=== PATIENT | male | born 1975 | race Two or more races ===

== ENCOUNTER 2017-02-24 05:49 | Inpatient (IN) | payer OTHER ==
[2017-02-24] VITALS (15 sets, daily range): BP systolic 11–122; BP diastolic 50–81
[~2017-02-24] VITALS: Ht 170.2 cm; Wt 85.3 kg
[~2017-02-24 05:49] MED LIST: GABAPENTIN100 MG ORAL; IBUPROFEN600 MG ORAL; TENORMIN25 MG ORAL
[2017-02-24] MEDS ORDERED: Bupivacaine w/Epi 0.5% 30ml Vial INJ ONE (06:18)
[2017-02-24] MEDS ORDERED: Gelfoam Absorbable 1gm powder pkt TOPIC ONE (06:18)
[2017-02-24] MEDS ORDERED: Thrombin 5000 units TOPIC ONE (06:18)
[2017-02-24] MEDS ORDERED: Vancomycin 1gm inj IVPB ONE (06:18)
[2017-02-24] MEDS ORDERED: Thrombin 5000 units spray kit TOPIC ONE (06:18)
[2017-02-24] MEDS ORDERED: Bacitracin 50000 Units Vial ONE (06:19)
--- NOTE | 2017-02-24 06:36 | Anethesia Preoperative Eval ---
Anesthesia Pre-op PMH/ROS General Date of Evaluation: Feb 24, 2017 Anesthesiologist: Pramod ASA Score: ASA 2 Mallampati Score Class I : Soft palate, uvula, fauces, pillars visible Class II: Soft palate, uvula, fauces visible Class III: Soft palate, base of uvula visible Class IV: Only hard plate visible Mallampati Classification: Class III Surgeon: Lenora Diagnosis: Lumbar radiculopathy Surgical Procedure: Transforaminal lumbar interbody fusion L5-S1 Anesthesia History: none Family History: no anesthesia problems Allergies: Coded Allergies: No Known Allergies (Unverified , 02/23/17) Medications: see eMAR Past Medical History Cardiovascular: Reports: HTN, Denies: CAD, LA, valve dz, arrhythmia, other Pulmonary: Denies: asthma, COPD, SON, other Gastrointestinal/Genitourinary: Denies: GERD, CRI, ESRD, other Neurologic/Psychiatric: Reports: depression/anxiety, Denies: dementia, CVA, TIA, other Endocrine: Denies: DM, hypothyroidism, steroids, other HEENT: Denies: cataract (L), cataract (R), glaucoma, [place] (L), [place] (R), other Hematology/Immune: Denies: anemia, DVT, bleeding disorder, other Musculoskeletal/Integumentary: Denies: OA, RA, DJD, DDD, edema, other PSxH Narrative: Denies Anesthesia Pre-op Phys. Exam Physician Exam Last Vital Signs Date Time Temp Pulse Resp B/P (MAP) Pulse Ox O2 Delivery O2 Flow Rate FiO2 02/24/17 06:27 97.3 65 17 122/77 97 Room Air Constitutional: NAD, other - right eye redness and with ?pterygium vs thick film over eye Cardiovascular: RRR Respiratory: CTA Airway Exam Mallampati Score: Class III MO: limited ROM: limited Teeth: intact Anesthesia Pre-op A/P Labs see chart Studies Pre-op Studies: EKG - sr Risk Assessment & Plan Assessment: ASA II, patient with right eye redness pre-op. States he is seeing and being treated by an opthalmologist for this condition as it is associated with some blurry/decreased vision. Plan: GA Status Change Before Surgery: No Pre-Antibiotics Drug: Ancef 2g Given Within 1 Hr of Incision: Yes Time Given: 07:20 CALLY LOZA M.D. Feb 24, 2017 06:35
[2017-02-24] MEDS ORDERED: Lidocaine 1% MPF 10mg/ml 5ml ONE (07:00)
[2017-02-24] MEDS ORDERED: NS Irrig 1000ml ONE (07:00)
[2017-02-24] MEDS ORDERED: Propofol 1,000mg/ 100ml btl IV ONE (07:00)
[2017-02-24] MEDS ORDERED: fentaNYL 100 mcg/2 mL IV ONE (07:00)
[2017-02-24] MEDS ORDERED: Metoclopramide 10mg/2ml Inj ONE (07:00)
[2017-02-24] MEDS ORDERED: Dexamethasone 4mg/ml vial ONE (07:00)
[2017-02-24] MEDS ORDERED: Propofol 200mg/20ml IV ONE ×2 (07:00→09:13)
[2017-02-24] MEDS ORDERED: Midazolam 2mg/2ml Inj ONE (07:00)
[2017-02-24] MEDS ORDERED: Sterile Water Irrig 1000ml IRRIG ONE (07:00)
[2017-02-24] MEDS ORDERED: Succinylcholine 20mg/ml 10ml vial ONE (07:00)
[2017-02-24] MEDS ORDERED: ceFAZolin 2gm/50ml Premix 50 ML IVPB ONE ×2 (07:00)
[2017-02-24] MEDS ORDERED: Zemuron 50mg/5ml Inj IV ONE (07:00)
[2017-02-24] MEDS ORDERED: LR 1000ml ONE (07:00)
[2017-02-24] MEDS ORDERED: ceFAZolin sod 2 GM in D5W 110 ML IVP ONE (07:00)
--- NOTE | 2017-02-24 07:08 | Pre-Procedure Note/Attestation ---
Pre-Procedure Note/Attestation Complete Prior to Procedure Procedure Narrative: l5 to s1 decompression and fusion and interbody fusion and instrumentation Indications for Procedure Pre-Operative Diagnosis: spondylolisthesis and radiculopathy L5 to S1 Attestation I attest that I discussed the nature of the procedure; its benefits; risks and complications; and alternatives (and the risks and benefits of such alternatives ), prior to the procedure, with the patient (or the patient's legal physician relations representative). I attest that, if there was a reasonable possibility of needing a blood transfusion, the patient (or the patient's legal physician relations representative) was given the [place] [facility] standardized written summary, pursuant to the Jean Claude Varun Blood Safety Act ([place] Health and Safety Code # 1645, as amended). I attest that I re-evaluated the patient just prior to the surgery and that there has been no change in the patient's H&P, except as documented below: RADHA RODGERS Feb 24, 2017 07:08
[2017-02-24] MEDS ORDERED: LR 1000ml 1,000 ML IVLG SCH (07:46)
--- NOTE | 2017-02-24 07:46 | Immediate Post-Op Evaluation ---
Immediate Post-Op Evalulation Immediate Post-Op Evalulation Procedure: Transforaminal lumbar interbody fusion L5-S1 Date of Evaluation: Feb 24, 2017 Time of Evaluation: 12:45 IV Fluids: 2L Blood Products: 0 Estimated Blood Loss: 500 Urinary Output: 170 Blood Pressure Systolic: 95 Blood Pressure Diastolic: 50 Pulse Rate: 87 Respiratory Rate: 17 O2 Sat by Pulse Oximetry: 98 Temperature (Fahrenheit): 98.5 Pain Score (1-10): 0 Nausea: No Vomiting: No Complications 0 Patient Status: awake, reacts, patent, none Hydration Status: adequate Drug: Ancef 2g Given Within 1 Hr of Incision: Yes Time Given: 07:20 CALLY LOZA M.D. Feb 24, 2017 07:46
[2017-02-24] MEDS ORDERED: fentaNYL 100 mcg/2 mL IV PRN (08:00)
[2017-02-24] MEDS ORDERED: Midazolam 2mg/2ml Inj IVP PRN (08:00)
[2017-02-24] MEDS ORDERED: Hydromorphone 0.5mg/0.5ml inj IVP PRN (08:00)
[2017-02-24] MEDS ORDERED: LORazepam Inj 2mg/ml 1ml IV PRN (08:00)
[2017-02-24] MEDS ORDERED: DiphenhydrAMINE 50mg/ml Inj IVP PRN (08:00)
[2017-02-24] MEDS ORDERED: Metoclopramide 10mg/2ml Inj IVP PRN (08:00)
[2017-02-24] MEDS ORDERED: Naloxone 0.4mg/ml Inj IVP PRN (12:15)
[2017-02-24] MEDS ORDERED: HYDROmorphone 1mg/ml Carpuject IVP PRN (12:15)
[2017-02-24] MEDS ORDERED: HYDROmorphone 1mg/ml Carpuject SUBQ PRN (12:15)
[2017-02-24] MEDS ORDERED: Norco 5mg/325mg tab ORAL PRN (12:15)
[2017-02-24] MEDS ORDERED: Norco 7.5mg/325mg tab ORAL PRN (12:15)
--- NOTE | 2017-02-24 12:18 | Brief Operative Note ---
Immediate Post Operative Note Operative Note Pre-op Diagnosis: spondylolisthesis and radiculopathy L5 to S1 Procedure: tlif l5s1 Post-op Diagnosis: same as pre-op Findings: consistent w/pre-op dx studies Surgeon: mike Analyst Market Intelligence: salas Anesthesiologist: trenton Specimen: none Complications: none Condition: stable Fluids: 1.6l Estimated Blood Loss: volume - 500cc Drains: hemovac Implant(s) used?: Yes RADHA RODGERS Feb 24, 2017 12:18
[2017-02-24] MEDS: D5 1/2NS 1,000 ML IV SCH ×2 (15:28→23:27)
--- NOTE | 2017-02-24 16:06 | Diagnostic Imaging Report ---
Indication: PAIN, intraoperative Technique: Intraoperative images Comparison: Med Findings: Intraoperative images document placement of posterior fusion hardware bridging L5 and S1, and placement of a disc spacer at the L5-S1 disc. Impression: Intraoperative imaging, as described
[2017-02-24] MEDS: ceFAZolin sod 1 GM in D5W 55 ML IV SCH ×2 (16:56→23:25)
[2017-02-24] MEDS: Docusate 100mg cap ORAL SCH (18:00)
[2017-02-25] VITALS: BP 115/70
[2017-02-25 04:00] VITALS: BP 105/75
[2017-02-25] MEDS: ceFAZolin sod 1 GM in D5W 55 ML IV SCH (06:02)
[2017-02-25 08:00] VITALS: BP 109/69
[2017-02-25] MEDS: Docusate 100mg cap ORAL SCH ×2 (09:33→18:05)
[2017-02-25] MEDS: D5 1/2NS 1,000 ML IV SCH ×3 (09:58→21:48)
[2017-02-25 11:51] LABS: BASOPHILS % (AUTO) 0.4 % (0.0-2.0); LYMPHOCYTES % (AUTO) 10.9 % (20.0-45.0); MEAN CORPUSCULAR HEMOGLOBIN 29.8 PG (27.0-31.0); MEAN CORPUSCULAR HGB CONC 33.8 G/DL (32.0-36.0); MEAN CORPUSCULAR VOLUME 88 FL (80-99); MEAN PLATELET VOLUME 8.5 FL (6.5-10.1); MONOCYTES % (AUTO) 6.4 % (1.0-10.0); NEUTROPHILS % (AUTO) 82.3 % (45.0-75.0); PLATELET COUNT 205 K/UL (150-450); RED CELL DISTRIBUTION WIDTH 11.9 % (11.6-14.8)
[2017-02-25 12:00] VITALS: BP 102/67
--- NOTE | 2017-02-25 13:36 | General Progress Note ---
Progress Note Progress Note no leg pain min lbp avss a and o times 3 inc cdi hv pulled calves soft and nt 5/5 motor le doing well brace pt arden mccollum dc home tomorrow with RADHA Anton Feb 25, 2017 13:36
[2017-02-25] MEDS: Norco 7.5mg/325mg tab ORAL PRN (15:09)
[2017-02-25] MEDS: Atenolol 25mg tab ORAL SCH (15:09)
[2017-02-25 16:00] VITALS: BP 121/79
--- NOTE | 2017-02-25 16:04 | 48 Hour Post Anesthesia Eval ---
Post Anesthesia Evaluation Procedure: Transforaminal lumbar interbody fusion L5-S1 Date of Evaluation: Feb 25, 2017 Time of Evaluation: 16:03 Blood Pressure Systolic: 128 0: 56 Pulse Rate: 72 Respiratory Rate: 20 Temperature (Fahrenheit): 97.5 O2 Sat by Pulse Oximetry: 98 Airway: patent Nausea: No Vomiting: No Pain Intensity: 3 Hydration Status: adequate Cardiopulmonary Status: stable Mental Status/LOC: patient returned to baseline Follow-up Care/Observations: n/a Post-Anesthesia Complications: none Follow-up care needed: N/A JACI DANIEL M.D. Feb 25, 2017 16:04
[2017-02-25 20:00] VITALS: BP 110/81
[2017-02-26] VITALS: BP 121/75
[2017-02-26 04:00] VITALS: BP 128/85
[2017-02-26] MEDS: D5 1/2NS 1,000 ML IV SCH (05:15)
[2017-02-26 08:38] VITALS: BP 133/86
[2017-02-26] MEDS: Atenolol 25mg tab ORAL SCH (08:40)
[2017-02-26] MEDS: Docusate 100mg cap ORAL SCH (08:40)
[2017-02-26 09:42] LABS: BASOPHILS % (AUTO) 0.5 % (0.0-2.0); LYMPHOCYTES % (AUTO) 11.7 % (20.0-45.0); MEAN CORPUSCULAR HEMOGLOBIN 30.5 PG (27.0-31.0); MEAN CORPUSCULAR HGB CONC 34.2 G/DL (32.0-36.0); MEAN CORPUSCULAR VOLUME 89 FL (80-99); MEAN PLATELET VOLUME 8.7 FL (6.5-10.1); MONOCYTES % (AUTO) 8.7 % (1.0-10.0); NEUTROPHILS % (AUTO) 79.2 % (45.0-75.0); PLATELET COUNT 184 K/UL (150-450); RED BLOOD COUNT 4.21 M/UL (4.70-6.10); WHITE BLOOD COUNT 12.8 K/UL (4.8-10.8)
[2017-02-26] MEDS ORDERED: NORCO 10-325 T1 EACH ORAL (10:59)
[2017-02-26] MEDS ORDERED: SOMA350 MG PO (11:01)
[2017-02-26 11:51] VITALS: BP 118/80
[2017-02-26] MEDS: Norco 7.5mg/325mg tab ORAL PRN (14:17)
[2017-02-26] MEDS ORDERED: D5 1/2NS 1000ml IV ONE (14:56)
--- NOTE | 2017-02-28 17:23 | Discharge Summary ---
Discharge Summary Hospital Course Date of Admission Feb 24, 2017 at 05:49 Date of Discharge Feb 26, 2017 at 14:57 Admitting Diagnosis lumbar radiculopathy and spondylolisthesis l5 S1 Reason for Hospitalization: elective surgery HPI Chip Smith is a 41 year old male who was admitted on Feb 24, 2017 at 05:49 for Lumbar Radiculopathy Procedures s/p 02/[address] Cooley transforaminal lumbar interbody fusion L5-S1 Hospital Course s/p surgery course of recovery uneventful neurovascular intact, no leg pain ambulated with PT brace IS at the bedside, while in the bed pain management addressed , controlled voided freely dressing C/D/I tolerated diet cleared for dc and fup with surgeon as outpatient as advised by surgeon FINAL DIAGNOSIS spondylolisthesis and radiculopathy L5 to S1 s/p 02/25 transforaminal lumbar interbody fusion L5-S1 Discharge Medications Continued Medications: Carisoprodol* (Soma*) 350 Mg Tablet 350 MG PO TID for Muscle Spasm, #30 TAB Hydrocodone Bit/Acetaminophen 10-325* ([place] 10-325*) 1 Each Tablet 1 TAB ORAL Q6H PRN for For Pain, #50 TAB 0 Refills PRN PAIN Discharge Condition Upon Discharge: stable Discharge Disposition Patient was discharged to Home (01) Discharge Diagnoses: Discharge Instructions Discharge Instructions Special Instructions I have been assigned to complete a D/C Summary on this account. I was not involved in the patient management Arielle Bialey NP ([place]) Feb 28, 2017 17:23
--- NOTE | 2017-03-05 22:45 | Operative Note - Dictated ---
DATE OF OPERATION: 02/24/2017 PREOPERATIVE DIAGNOSES: L5-S1 anterolisthesis with pars defect/fracture with severe neuroforaminal stenosis, disk protrusion, and left lower extremity radiculopathy. POSTOPERATIVE DIAGNOSES: L5-S1 anterolisthesis with pars defect/fracture with severe neuroforaminal stenosis, disk protrusion, and left lower extremity radiculopathy. PROCEDURES PERFORMED: 1. Laminectomy at L5-S1 with foraminotomy. 2. Posterior interbody fusion via left-sided transforaminal approach at L5-S1. 3. Application of PEEK interbody device at L5-S1. 4. Posterolateral fusion at L5-S1 with local autograft and allograft. 5. Pedicle screw instrumentation at L5-S1. 6. Intraoperative use of microscope. 7. Intraoperative use of fluoroscopy, SSEP, EMG, and free-running EMG. SURGEON: Nagi Cooley M.D. PRESS OPERATOR [employer]: Toan Turner M.D. ANESTHESIA: General endotracheal anesthesia. ANESTHESIOLOGIST: Dr. Julio. INTRAOPERATIVE FINDINGS: Bilateral L5 pars fracture with anterolisthesis and severe stenosis, disk protrusion, and impingement of the traversing exiting nerve roots with central stenosis. ESTIMATED BLOOD LOSS: A 500 mL. INDICATIONS: The patient presented with back pain and leg pain. He had failed nonoperative treatments. Option for above treatment was given. Risks, alternatives, and benefits were discussed with the patient at length. Risks include but are not limited to anesthesia complications including , medical complications including liver or kidney or cardiopulmonary deficits, bleeding, infection, nerve injury, pars fracture, screw cutoff, screw failure, nerve injury, paralysis, cauda equina syndrome as well as other complications. The patient understood and wished to proceed. Written and verbal consent was given. DESCRIPTION OF OPERATION: The patient was brought to the operating room supine on a stretcher. Subsequently, appropriate IV lines were placed. A 2 g of Ancef was administered. A surgical time-out was called. Anesthesia was induced. The patient was successfully intubated. Sequential compression devices were placed. A Scott was placed under sterile conditions. The patient was gently turned over prone on the Pako frame table. All bony prominences were well padded. The arms were placed in the 90-90 position. At this point, intraoperative fluoroscopy was used to expand the incision over the L5-S1 interspace. An indelible marker was used to norberto the midline and at this point, the patient's back was prepped and draped in usual sterile fashion with alcohol, chlorhexidine scrub, ChloraPrep, and Ioban draping. My clinic assistant and I were both prepped and gowned appropriately and at this point, the intraoperatively sterilely draped microscope was brought into the field. An incision was carried out over the midline with a #15 scalpel along with monopolar cautery. Subperiosteal dissection was carried out at L5-S1 through the dorsal lumbar fascia and the paraspinal muscles were carefully lifted off the bone with monopolar cautery. Retractors were set in place and at this point, a radiopaque marker was placed at the S1 pedicle level and the L5-S1 pedicle was identified. There were bilateral pars defects found and with the aid of a [place] rongeur, straight and curved curettes, #2 through #5 Kerrison punches, and Dillingham probe, a laminectomy was carried out and subsequently foraminotomy for the exiting L5 nerve root bilaterally was accomplished for excellent decompression of bilateral L5 nerve root. The superior facet of the S1 was osteotomized with a high-speed drill for preparation of placement of the PEEK interbody spacer. The left S1 pedicle was skeletonized, the left L5 pedicle was skeletonized as well, and the L5 nerve root was visualized. At this point, attention was diverted to the interbody fusion with #4 [place] and a nerve root retractor, the neural elements were carefully medially retracted and nerve root retractor was used to protect the neural elements. At this point, a disk protrusion was found, which was impinging on the neural elements and with an #11 scalpel, a box incision was carried out in the posterior anulus. With appropriate disk preparation, instruments including box curette, shon, Mariana curette, Sofield as well as pituitary rongeur, a radical diskectomy was carried out through a left-sided transforaminal approach until all disk material was removed and endplate cartilage was removed and endplate bone was well preserved and at this point, trials from the spinal element system was used until a correct-fitting trial lordotic was found. The corresponding PEEK interbody device was chosen. The anterior interbody space was packed with bone morphogenic protein and Nazia putty and so was the inside of the PEEK interbody spacer and the PEEK interbody device was carefully tamped into place into the L5-S1 interbody space. This was verified with AP and lateral fluoroscopy and the PEEK interbody device was found to be in excellent position. At this point, attention was diverted to placement of the pedicle screws. High-speed drill was used to norberto the mamillary processes at L5 and the inferolateral aspect of the L5-S1 facet. This was marked with high-speed drill and with Lenke probes, the center of the pedicles were probed respectively of bilateral L5 and bilateral S1. Once this was done, a ball-tip probe was used to verify. There were no cortical breaches. Once this was done, appropriately-sized taps were used to tap the center of the pedicle and appropriately sized-pedicle screws from the [employer] was used. Each screw had excellent purchase and looked in great position on AP and lateral fluoroscopy. Stimulus-evoked EMG for each screw was done and the screws were deemed to be safe. There were no cortical breaches and at this point, complete decortication of the posterolateral gutter including the sacral ala and the L5 transverse processes was done. Appropriately-sized rods were used in the tulips and placement of tulips of the pedicle screws. Once this was done, set screws were placed and torqued appropriately. There was no cross-threading of the set screws. AP and lateral fluoroscopy revealed all instrumentation to be in good position. At this point, local autograft from the laminectomy and [place] allograft putty was placed into the posterolateral gutters. Valsalva was done at 15 mmHg and there was no CSF leak. Copious Triple Antibiotic irrigation of the disk space was done previous and after to the implantation of the instrumentation. At this point, final AP and lateral fluoroscopy revealed all instrumentation to be in good position. SSEP and EMG remained stable. EBL was 500 mL. Attention was diverted to closure. A subfascial Hemovac drain was placed. The dorsal lumbar fascia was closed with #1 Vicryl in horizontal watertight fashion. At this point, copious Triple Antibiotic solution was used again. Subdermal and subcuticular layers were closed with 2-0 Vicryl sutures and skin was closed with Dermabond. Sterile dressing and tape was placed. All sponge, needle, and instrument counts were correct. The patient was turned supine, extubated in stable condition, and was taken to recovery room in stable condition. Nagi Cooley M.D. DR: NAVA JOB#: [id number] CC: EZ
--- NOTE | 2017-04-06 11:42 | Pre-Procedure Note/Attestation ---
Pre-Procedure Note/Attestation Complete Prior to Procedure Procedure Narrative: tlif L45 with posterior fusion and decompression Indications for Procedure Pre-Operative Diagnosis: spondylolisthesis and radiculopathy L5 to S1 Attestation I attest that I discussed the nature of the procedure; its benefits; risks and complications; and alternatives (and the risks and benefits of such alternatives ), prior to the procedure, with the patient (or the patient's legal shared services representative). I attest that, if there was a reasonable possibility of needing a blood transfusion, the patient (or the patient's legal shared services representative) was given the [facility] standardized written summary, pursuant to the Jean Claude Varun Blood Safety Act ([place] Health and Safety Code # 1645, as amended). I attest that I re-evaluated the patient just prior to the surgery and that there has been no change in the patient's H&P, except as documented below: RADHA RODGERS Apr 06, 2017 11:42
== END 2017-02-26 14:57 | disposition home or self-care (01) | DRG 460 ==
LOC: SDSOVERFLO 05:49 → 3E 15:07
PROC: 0ST40ZZ Resection of Lumbosacral Disc, Open Approach (ICD-10-PCS; principal; 2017-02-24 07:00)
PROC: 01NB0ZZ Release Lumbar Nerve, Open Approach (ICD-10-PCS; principal; 2017-02-24 07:00)
PROC: 0SG30AJ Fusion of Lumbosacral Joint with Interbody Fusion Device, Posterior Approach, Anterior Column, Open Approach (ICD-10-PCS; principal; 2017-02-24 07:00)
DX: M51.17 Intervertebral disc disorders with radiculopathy, lumbosacral region (principal); I10 Essential (primary) hypertension; M43.16 Spondylolisthesis, lumbar region; M47.27 Other spondylosis with radiculopathy, lumbosacral region; M79.2 Neuralgia and neuritis, unspecified; M48.07 Spinal stenosis, lumbosacral region
CPT/HCPCS: 36415; 72020; 76001; 85025; 86850; 86900; 86901; 87081; 94003; 94150; J2250; J2405; J2765